=== PATIENT | female | born 1990 | race Caucasian/White ===

== ENCOUNTER 2018-12-23 10:49 | Emergency (ER) | payer OTHER ==
[~2018-12-23] VITALS: Ht 160 cm; Wt 74.6 kg
[2018-12-23 11:01] VITALS: BP 119/68
--- NOTE | 2018-12-23 11:11 | NUR ---
C/O FAINTING 25MIN AGO. PT REPORT BEING DIZZY, SWEATY, AND PASSED OUT AFTER DRINKING [employer] COFFEE. PT REPORTS FEELING NAUSEAS. DENIES FEVER. MEDHX:GASTRIC SLEEVE SURGERY, ASTHMA RX:NAUCALA . DENIES V/D; SKIN IS PINK/WARM/DRY; AAOX4 WITH EVEN AND STEADY GAIT; LUNGS CLEAR BL; HR EVEN AND REGULAR; PT DENIES ANY FEVER, CP, SOB, OR COUGH AT THIS TIME; PATIENT STATES PAIN OF 0/10 AT THIS TIME; VSS; PATIENT POSITIONED FOR COMFORT; HOB ELEVATED; BEDRAILS UP X2; BED DOWN. ER MD MADE AWARE OF PT STATUS.
[2018-12-23] MEDS ORDERED: NACL 0.9% 1,000 ML IV SCH (11:21)
[2018-12-23 11:49] LABS: APPEARANCE,URINE SL CLOUDY (CLEAR); BILIRUBIN,URINE NEGATIVE (NEGATIVE); BLOOD, URINE NEGATIVE (NEGATIVE); COLOR,URINE YELLOW (YELLOW); LEUKOCYTE ESTERASE ,URINE NEGATIVE (NEGATIVE); NITRITE, URINE NEGATIVE (NEGATIVE); PH,URINE 6.5 (5.0-9.0); UGLUCOSE NEGATIVE (NEGATIVE)
[2018-12-23 12:00] LABS: ALBUMIN 3.2 g/dL (3.4-5.0); ANION GAP 6.7 (8-16); CARBON DIOXIDE 31.1 mmol/L (21-32); CREATININE 0.7 mg/dL (0.6-1.3); POTASSIUM 3.8 mmol/L (3.5-5.1); TOTAL BILIRUBIN 0.7 mg/dL (0.0-1.0)
[2018-12-23 12:28] LABS: BASOPHILS % (AUTO) 0.3 % (0.0-2.0); EOSINOPHILS # (AUTO) 0.1 K/uL (0-0.4); EOSINOPHILS % (AUTO) 0.6 % (0.0-4.0); HEMATOCRIT 36.6 % (36-48); HEMOGLOBIN 12.1 g/dL (12.0-16.0); LYMPHOCYTES # (AUTO) 1.5 K/uL (2.5-16.5); LYMPHOCYTES % (AUTO) 15.1 % (20.5-51.1); MEAN CORPUSCULAR HEMOGLOBIN 29 pg (27-31); MEAN CORPUSCULAR HGB CONC 33 g/dL (33-37); MEAN CORPUSCULAR VOLUME 87.6 fL (80-94); MONOCYTES # (AUTO) 0.6 K/uL (0.8-1.0); MONOCYTES % (AUTO) 5.8 % (1.7-9.3); NEUTROPHILS # (AUTO) 7.8 K/uL (1.8-7.7); NEUTROPHILS % (AUTO) 78.2 % (42.2-75.2); PLATELET COUNT (AUTO) 255 K/uL (140-450); RED BLOOD CELL COUNT(AUTO) 4.18 MIL/uL (4.20-5.40); RED CELL DISTRIBUTION WIDTH 14.7 % (11.6-13.7); WHITE BLOOD COUNT (AUTO) 9.9 K/uL (4.8-10.8)
[2018-12-23 14:25] VITALS: BP 114/62
--- NOTE | 2018-12-23 14:25 | NUR ---
Patient discharged with v/s stable. Written and verbal after care instructions given and explained. Patient alert, oriented and verbalized understanding of instructions. Ambulatory with steady gait. All questions addressed prior to discharge. ID band removed. Patient advised to follow up with PMD. Rx NO given. Patient educated on indication of medication including possible reaction and side effects. Opportunity to ask questions provided and answered.
== END 2018-12-23 14:25 | disposition home or self-care (01) ==
LOC: MED 10:49
DX: R55 Syncope and collapse (principal); R10.9 Unspecified abdominal pain; J45.909 Unspecified asthma, uncomplicated; Z88.1 Allergy status to other antibiotic agents
CPT/HCPCS: 36415; 74018; 80053; 81002; 81003; 81025; 82948; 84703; 85025; 93005; 96360; 96361; 99284; J7030; Q0092

== ENCOUNTER 2018-12-25 18:05 | Inpatient (IN) | payer OTHER ==
[~2018-12-25] VITALS: Ht 157.5 cm; Wt 73.9 kg
[2018-12-25] MEDS: DEXT 5% /NACL 0.9% 1,000 ML IV SCH
[2018-12-25 00:55] VITALS: BP 128/82
[2018-12-25 18:15] VITALS: BP 133/87
[2018-12-25 19:21] LABS: APPEARANCE,URINE SL CLOUDY (CLEAR); BILIRUBIN,URINE 2+ (NEGATIVE); BLOOD, URINE 1+ (NEGATIVE); COLOR,URINE DARK YELLOW (YELLOW); LEUKOCYTE ESTERASE ,URINE NEGATIVE (NEGATIVE); NITRITE, URINE NEGATIVE (NEGATIVE); UGLUCOSE NEGATIVE (NEGATIVE)
[2018-12-25 19:29] LABS: CALCIUM OXALATE CRYSTALS,UR >100 /HPF (None Seen); RBC,URINE 0-5 /HPF (0-5); WBC,URINE 0-5 /HPF (0-5)
[2018-12-25 19:38] LABS: BASOPHILS % (AUTO) 0.2 % (0.0-2.0); EOSINOPHILS % (AUTO) 0.4 % (0.0-4.0); HEMATOCRIT 39.5 % (36-48); LYMPHOCYTES # (AUTO) 1.7 K/uL (2.5-16.5); LYMPHOCYTES % (AUTO) 16.6 % (20.5-51.1); MEAN CORPUSCULAR HEMOGLOBIN 29 pg (27-31); MEAN CORPUSCULAR HGB CONC 33 g/dL (33-37); MEAN CORPUSCULAR VOLUME 87.9 fL (80-94); MONOCYTES # (AUTO) 0.6 K/uL (0.8-1.0); MONOCYTES % (AUTO) 6.2 % (1.7-9.3); NEUTROPHILS # (AUTO) 7.8 K/uL (1.8-7.7); NEUTROPHILS % (AUTO) 76.6 % (42.2-75.2); PLATELET COUNT (AUTO) 304 K/uL (140-450); RED CELL DISTRIBUTION WIDTH 14.9 % (11.6-13.7); WHITE BLOOD COUNT (AUTO) 10.2 K/uL (4.8-10.8)
[2018-12-25 19:52] LABS: CARBON DIOXIDE 28.4 mmol/L (21-32); CREATININE 0.6 mg/dL (0.6-1.3); POTASSIUM 4.4 mmol/L (3.5-5.1)
[2018-12-25 19:58] LABS: ALBUMIN 3.7 g/dL (3.4-5.0); TOTAL BILIRUBIN 2.9 mg/dL (0.0-1.0)
--- NOTE | 2018-12-25 20:34 | NUR ---
28 Y/O F PRESENTED TO ED WITH C/O R UNDER BREAST PAIN X 2DAYS. 10/10 PAIN, SHARP AND ACHING, RADIATES TO MID BACK. PAIN IS INTERMINTENT. UNDER BREAST TENDER TO TOUCH. C/O N/V 4X TODAY. PER PT TOOK IBUPROFEN WITH NO RELIEF. FAMILY AT BEDSIDE. WILL CONTINE TO MONITOR.
[2018-12-25] MEDS ORDERED: MORPHINE SULFATE 4 MG/ML SYR IVP ONE (20:35)
[2018-12-25] MEDS ORDERED: NACL 0.9% 1,000 ML IV ONE (20:35)
[2018-12-25] MEDS ORDERED: ONDANSETRON 4 MG/2 ML VIAL IVP ONE (20:35)
--- NOTE | 2018-12-25 21:45 | NUR ---
PT AWAKE. VSS. FAMILY AT BEDSIDE. MIRNA CONTINUE TO MONITOR.
--- NOTE | 2018-12-25 23:50 | NUR ---
Patient will be admitted to care of DR. DAVIS. Admited to [facility]. Will go to room 105A. Belongings list completed. Report to BASIM DIEZ.
--- NOTE | 2018-12-25 23:55 | NUR ---
PT RECEIVED FROM ED NURSE AT BEDSIDE. PT IN STABLE CONDITION. AAOX4. INTRODUCED SELF TO PT. BOARD UPDATED. PT HAS COMPLAINTS OF A HEADACHE. WILL MEDICATE. NO SOB. AFEBRILE. IV SITE L AC 20G RUNNING D5NS@100ML/HR PATENT AND INTACT. SKIN WARM, DRY, AND INTACT WITH NO OPEN WOUNDS. BED LOCKED IN LOW POSITION. CALL CARDOZA WITHIN REACH. SAFETY PRECAUTIONS IN PLACE. ALL NEEDS MET AT THIS TIME.
[2018-12-26] VITALS: BP 128/82
[2018-12-26] MEDS ORDERED: metroNIDAZOLE 500 MG/NS PREMIX 100 ML IV SCH
--- NOTE | 2018-12-26 00:16 | NUR ---
FRANCISCO HUNG AND RUNNING. PT TOLERATING WELL. Addendum: 12/26/18 at 0058 by Sree Jones RN TYL [phone] GIVEN PO FOR HEADACHE.
[2018-12-26] MEDS: ACETAMINOPHEN 325 MG TAB PO PRN ×2 (00:18→17:47)
[2018-12-26] MEDS ORDERED: TRAZ-343 PO (00:22)
--- NOTE | 2018-12-26 00:35 | NUR ---
MD CALLED DUE TO PT WANTING TRAZODONE FOR SLEEP.
[2018-12-26] MEDS: traZODone 50 MG TAB PO PRN ×2 (00:43→20:23)
--- NOTE | 2018-12-26 00:43 | NUR ---
TRAZODONE GIVEN FOR SLEEP. PT TOLERATED WELL.
[2018-12-26] MEDS ORDERED: LEVOFLOXACIN 750 MG/D5W PREMIX 150 ML IV SCH (01:00)
--- NOTE | 2018-12-26 01:38 | NUR ---
MARLON RAND AND RUNNING. PT TOLERATED WELL.
--- NOTE | 2018-12-26 03:15 | NUR ---
PT SLEEPING COMFORTABLY. NO S/S OF DISTRESS NOTED. WILL CONTINUE TO MONITOR.
--- NOTE | 2018-12-26 05:00 | NUR ---
PT SLEEPING COMFORTABLY IN BED. NO S/S OF DISTRESS NOTED. BREATHING EVEN, UNLABORED, AND WNL. WILL CONTINUE TO MONITOR.
[2018-12-26] MEDS: MORPHINE SULFATE 4 MG/ML SYR IVP PRN ×4 (06:44→20:23)
--- NOTE | 2018-12-26 06:44 | NUR ---
MORPHINE GIVEN FOR 9/10 COLIC PAIN. PT TOLERATED WELL.
[2018-12-26 07:00] LABS: BASOPHILS % (AUTO) 0.3 % (0.0-2.0); EOSINOPHILS # (AUTO) 0.1 K/uL (0-0.4); EOSINOPHILS % (AUTO) 1.4 % (0.0-4.0); HEMATOCRIT 36.4 % (36-48); HEMOGLOBIN 12.1 g/dL (12.0-16.0); LYMPHOCYTES # (AUTO) 2.1 K/uL (2.5-16.5); MEAN CORPUSCULAR HEMOGLOBIN 29 pg (27-31); MEAN CORPUSCULAR HGB CONC 33 g/dL (33-37); MEAN CORPUSCULAR VOLUME 87.9 fL (80-94); MONOCYTES # (AUTO) 0.6 K/uL (0.8-1.0); MONOCYTES % (AUTO) 9.5 % (1.7-9.3); NEUTROPHILS # (AUTO) 3.8 K/uL (1.8-7.7); NEUTROPHILS % (AUTO) 56.8 % (42.2-75.2); PLATELET COUNT (AUTO) 257 K/uL (140-450); RED BLOOD CELL COUNT(AUTO) 4.14 MIL/uL (4.20-5.40); RED CELL DISTRIBUTION WIDTH 14.9 % (11.6-13.7); WHITE BLOOD COUNT (AUTO) 6.7 K/uL (4.8-10.8)
--- NOTE | 2018-12-26 07:05 | NUR ---
REPORT GIVEN TO AM NURSE AT BEDSIDE. PT IN STABLE CONDITION.
[2018-12-26 07:13] LABS: ANION GAP 12.4 (8-16); CARBON DIOXIDE 27.2 mmol/L (21-32); CREATININE 0.5 mg/dL (0.6-1.3); POTASSIUM 3.6 mmol/L (3.5-5.1)
[2018-12-26 07:18] LABS: PROTHROMBIN TIME 9.7 secs (10.8-13.4)
[2018-12-26 07:19] LABS: ALBUMIN 2.9 g/dL (3.4-5.0); TOTAL BILIRUBIN 2.4 mg/dL (0.0-1.0)
--- NOTE | 2018-12-26 07:20 | NUR ---
REPORT RECEIVED FROM DIAGRAMMER NURSE. PT IS AWAKE AND ALERT, NO S/S OF ACUTE DISTRESS OR SOB. NO C/O PAIN. PT IS ON ROOM AIR, SKIN IS INTACT. IV SITE NOTED ON THE LAC 20 G, INFUSING D5NS 100 ML/HR. PT IS AMBULATORY AND NOT A FALL RISK, CALL LIGHT IS WITHIN REACH. WILL CONTINUE TO MONITOR.
[2018-12-26 07:32] LABS: MAGNESIUM 1.7 mg/dL (1.8-2.4)
[2018-12-26 08:00] VITALS: BP 124/71
--- NOTE | 2018-12-26 08:35 | NUR ---
PATIENT HAS BEEN SCREENED AND CATEGORIZED MODERATE NUTRITION RISK. PATIENT WILL BE SEEN WITHIN 3-5 DAYS OF ADMISSION. 12/28/18[address]
--- NOTE | 2018-12-26 08:54 | NUR ---
PT COMPLETED THE MRI QUESTIONNAIRE FOR THE UPCOMING MRCP. AWAITING SS TO ARRANGE APPOINTMENT AND TRANSPORT.PT IS MAINTAINED NPO.
[2018-12-26] MEDS: metroNIDAZOLE 500 MG/NS PREMIX 100 ML IV SCH ×3 (09:48→23:18)
[2018-12-26] MEDS: DEXT 5% /NACL 0.9% 1,000 ML IV SCH ×2 (09:48→19:59)
--- NOTE | 2018-12-26 10:25 | NUR ---
PT SEEN BY DR LANGFORD
--- NOTE | 2018-12-26 11:13 | NUR ---
PT SEEN BY DR ANTOINE
[2018-12-26] MEDS: ONDANSETRON 4 MG/2 ML VIAL IVP PRN ×2 (11:53→17:43)
--- NOTE | 2018-12-26 12:08 | NUR ---
CONSENT OBTAINED FROM PT FOR CHOLECYSTECTOMY PROCEDURE TOMORROW.
[2018-12-26] MEDS: SENNA 8.6 MG TAB PO SCH ×2 (13:37→15:51)
--- NOTE | 2018-12-26 15:03 | NUR ---
CALLED OFFICE OF DR EDVIN NICHOLAS SPOKE WITH JASMINA [phone] FOLLOW- UP APPOINTMENT MADE ON 01/04/19 830AM, [address] [facility] [place], [id number]. COPY OF SCHEDULE APPOINTMENT PLACED TO CHART, PRIMARY NURSE MICHEAL MADE AWARE. VERBALIZED UNDERSTANDING TO INSTRUCT PATIENT.
[2018-12-26 16:00] VITALS: BP 115/78
--- NOTE | 2018-12-26 19:15 | NUR ---
PT ENDORSED TO PHYSICAL FITNESS TEACHER NURSE IN STABLE CONDITION.
--- NOTE | 2018-12-26 19:16 | NUR ---
RECEIVED REPORT FROM DAY SHIFT NURSE MICHEAL-RN AT BEDSIDE. PT RESTING IN BED. AOX4, ON ROOM AIR WITH LEFT AC #20G RUNNING D5-NS0.9% RUNNING AT 100ML/HR. DISCUSSED PLAN OF CARE AND PT VERBALIZED UNDERSTANDING. NO S/S OF RESPIRATORY DISTRESS OR DISCOMFORT NOTED AT THIS TIME. BED IN LOWEST POSITION, BED BREAKS ON, BOTH SIDE RAILS UP. STRICT I&O IN PLACE. BEDSIDE TABLE AND CALL LIGHT ARE WITHIN REACH. WILL CONTINUE TO MONITOR.
[2018-12-26 20:00] VITALS: BP 110/58
--- NOTE | 2018-12-26 20:00 | NUR ---
VITAL SIGNS TAKEN AND TOLERATED WELL. PT C/O PAIN 06/08- WILL ADMINISTER PAIN MEDICATION. PT ALSO C/O INSOMNIA REQUESTING TRAZODONE- WILL ADMINISTER. NO S/S OF RESPIRATORY DISTRESS OR DISCOMFORT NOTED AT THIS TIME. WILL CONTINUE TO MONITOR.
--- NOTE | 2018-12-26 20:23 | NUR ---
TRAZODONE AND MORPHINE GIVEN AND TOLERATED WELL. NO S/S OF RESPIRATORY DISTRESS OR DISCOMFORT NOTED AT THIS TIME. WILL CONTINUE TO MONITOR.
[2018-12-26] MEDS: LEVOFLOXACIN 750 MG/D5W PREMIX 150 ML IV SCH (22:07)
--- NOTE | 2018-12-26 22:07 | NUR ---
SCHEDULED MEDICATION LEVAQUIN GIVEN AND TOLERATED WELL. NO S/S OF RESPIRATORY DISTRESS OR DISCOMFORT NOTED AT THIS TIME. WILL CONTINUE TO MONITOR.
[2018-12-26] MEDS ORDERED: PNEUMOCOCCAL VACCINE 23 MCG/0.5 ML VIAL IMVAC ONE (22:45)
--- NOTE | 2018-12-26 23:18 | NUR ---
SCHEDULED MEDICATION FLAGYL GIVEN AND TOLERATED WELL. NO S/S OF RESPIRATORY DISTRESS OR DISCOMFORT NOTED AT THIS TIME. WILL CONTINUE TO MONITOR.
[2018-12-27] VITALS: BP 108/77
--- NOTE | 2018-12-27 | NUR ---
VITAL SIGNS TAKEN AND TOLERATED WELL. NO S/S OF RESPIRATORY DISTRESS OR DISCOMFORT NOTED AT THIS TIME. WILL CONTINUE TO MONITOR.
--- NOTE | 2018-12-27 02:00 | NUR ---
PT SLEEPING AT THIS TIME. NO S/S OF RESPIRATORY DISTRESS OR DISCOMFORT NOTED AT THIS TIME. WILL CONTINUE TO MONITOR.
--- NOTE | 2018-12-27 04:00 | NUR ---
PT CONTINUES TO SLEEP IN BED. NO S/S OF RESPIRATORY DISTRESS OR DISCOMFORT NOTED AT THIS TIME. WILL CONTINUE TO MONITOR.
[2018-12-27] MEDS: DEXT 5% /NACL 0.9% 1,000 ML IV SCH ×2 (05:00→15:00)
--- NOTE | 2018-12-27 06:00 | NUR ---
PT RESTING IN BED. NO S/S OF RESPIRATORY DISTRESS OR DISCOMFORT NOTED AT THIS TIME. WILL CONTINUE TO MONITOR.
--- NOTE | 2018-12-27 07:09 | NUR ---
ENDORSED PT CARE TO DAY SHIFT NURSE AMY FOR CONTINUITY OF CARE.
--- NOTE | 2018-12-27 07:15 | NUR ---
RECEIVED PT REPORT FROM SIDING INSTALLER NURSE AT BEDSIDE. PT IS ALERT AND AWAKE, NO S/S OF ACUTE DISTRESS OR SOB. PT C/O ABD PAIN, WILL MEDICATE. IV SITE ON THE LAC 20 G INFUSING D5NS 100 ML/HR. PT IS NPO FOR UPCOMING CHOLECYSTECTOMY PROCEDURE TODAY. CALL LIGHT IS WITHIN REACH. WILL CONTINUE TO MONITOR.
[2018-12-27 08:00] VITALS: BP 121/82
[2018-12-27] MEDS: SENNA 8.6 MG TAB PO SCH ×3 (08:55→16:45)
[2018-12-27] MEDS: metroNIDAZOLE 500 MG/NS PREMIX 100 ML IV SCH ×3 (08:55→23:48)
[2018-12-27] MEDS: MORPHINE SULFATE 4 MG/ML SYR IVP PRN ×3 (08:55→20:38)
[2018-12-27 08:59] LABS: BASOPHILS % (AUTO) 0.5 % (0.0-2.0); EOSINOPHILS # (AUTO) 0.1 K/uL (0-0.4); EOSINOPHILS % (AUTO) 1.7 % (0.0-4.0); HEMATOCRIT 36.1 % (36-48); HEMOGLOBIN 12.3 g/dL (12.0-16.0); LYMPHOCYTES # (AUTO) 1.7 K/uL (2.5-16.5); LYMPHOCYTES % (AUTO) 37.4 % (20.5-51.1); MEAN CORPUSCULAR HEMOGLOBIN 30 pg (27-31); MEAN CORPUSCULAR HGB CONC 34 g/dL (33-37); MEAN CORPUSCULAR VOLUME 87.3 fL (80-94); MONOCYTES # (AUTO) 0.5 K/uL (0.8-1.0); MONOCYTES % (AUTO) 10.7 % (1.7-9.3); NEUTROPHILS # (AUTO) 2.3 K/uL (1.8-7.7); NEUTROPHILS % (AUTO) 49.7 % (42.2-75.2); PLATELET COUNT (AUTO) 257 K/uL (140-450); RED BLOOD CELL COUNT(AUTO) 4.14 MIL/uL (4.20-5.40); RED CELL DISTRIBUTION WIDTH 14.9 % (11.6-13.7); WHITE BLOOD COUNT (AUTO) 4.6 K/uL (4.8-10.8)
[2018-12-27 09:02] LABS: ALBUMIN 2.9 g/dL (3.4-5.0); ANION GAP 9.7 (8-16); CARBON DIOXIDE 30.5 mmol/L (21-32); CREATININE 0.7 mg/dL (0.6-1.3); MAGNESIUM 1.7 mg/dL (1.8-2.4); PHOSPHORUS 2.4 mg/dL (2.5-4.9); POTASSIUM 4.2 mmol/L (3.5-5.1); TOTAL BILIRUBIN 0.9 mg/dL (0.0-1.0)
--- NOTE | 2018-12-27 11:05 | NUR ---
PT OFF THE UNIT FOR SURGICAL PROCEDURE AT THIS TIME.
[2018-12-27] MEDS: BUPIVACAINE-MPF/EPI 0.25% 30 ML VIAL INJ ONE ×2 (11:20→12:45)
[2018-12-27] MEDS ORDERED: ROCURONIUM 50 MG/5 ML VIAL IV ONE (11:52)
[2018-12-27] MEDS ORDERED: DESFLURANE 240 ML BTL INH ONE (11:52)
[2018-12-27] MEDS ORDERED: GLYCOPYRROLATE 0.2 MG/ML VIAL ONE (11:52)
[2018-12-27] MEDS ORDERED: ONDANSETRON 4 MG/2 ML VIAL ONE (11:52)
[2018-12-27] MEDS ORDERED: SUCCINYLCHOLINE CHLORIDE 200 MG/10 ML VIAL IVP ONE (11:52)
[2018-12-27] MEDS ORDERED: PHENYLEPHRINE 10 MG/ML VIAL ONE (11:52)
[2018-12-27] MEDS ORDERED: PROPOFOL 200 MG/20 ML VIAL IV ONE (11:52)
[2018-12-27] MEDS ORDERED: KETOROLAC 30 MG/ML VIAL ONE (11:52)
[2018-12-27] MEDS ORDERED: DEXAMETHASONE 4 MG/ML VIAL ONE (11:52)
[2018-12-27] MEDS ORDERED: HYDROmorphone PFS 2 MG/ML SYR ONE ×2 (12:06→13:20)
[2018-12-27] MEDS ORDERED: fentaNYL 0.05 MG/ML VIAL ONE (12:06)
[2018-12-27] MEDS ORDERED: ONDANSETRON 4 MG/2 ML VIAL IVP PRN (12:15)
--- NOTE | 2018-12-27 13:10 | NUR ---
PT BACK FROM THE OR. PT IS AWAKE BUT STILL DROWSY. VS STABLE: BP 109/61, HR 59, TEMP 97.8, O2 94%, RR 14. CALL LIGHT GIVEN WITHIN REACH. WILL CONTINUE TO MONITOR. PT'S SO IS AT BEDSIDE.
[2018-12-27] MEDS: HYDROmorphone 1 MG/ML AMP IVP PRN ×2 (13:13→13:23)
[2018-12-27] MEDS: ONDANSETRON 4 MG/2 ML VIAL IVP PRN (14:08)
[2018-12-27] MEDS ORDERED: PNEUMOCOCCAL VACCINE 23 MCG/0.5 ML VIAL IMVAC SCH (14:55)
[2018-12-27 16:00] VITALS: BP 116/67
--- NOTE | 2018-12-27 19:15 | NUR ---
PT ENDORSED TO TRANSIT OPERATOR IN STABLE CONDITION.
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
[2018-12-27 20:00] VITALS: BP 113/70
--- NOTE | 2018-12-27 20:00 | NUR ---
VITAL SIGNS TAKEN AND TOLERATED WELL. PT C/O PAIN 04/08- WILL MEDICATE. NO S/S OF RESPIRATORY DISTRESS OR DISCOMFORT NOTED AT THIS TIME. WILL CONTINUE TO MONITOR.
[2018-12-27] MEDS: traZODone 50 MG TAB PO PRN (20:37)
--- NOTE | 2018-12-27 20:38 | NUR ---
MORPHINE GIVEN FOR PAIN- PT TOLERATED WELL. PT REQUESTED TRAZODONE FOR SLEEP- GIVEN AND TOLERATED WELL. NO S/S OF RESPIRATORY DISTRESS OR DISCOMFORT NOTED AT THIS TIME. WILL CONTINUE TO MONITOR.
[2018-12-27] MEDS: LEVOFLOXACIN 750 MG/D5W PREMIX 150 ML IV SCH (22:29)
--- NOTE | 2018-12-27 22:29 | NUR ---
SCHEDULED MEDICATION LEVAQUIN GIVEN AND TOLERATED WELL. NO S/S OF RESPIRATORY DISTRESS OR DISCOMFORT NOTED AT THIS TIME. WILL CONTINUE TO MONITOR.
--- NOTE | 2018-12-27 23:48 | NUR ---
SCHEDULED MEDICATION FLAGYL GIVEN AND TOLERATED WELL. NO S/S OF RESPIRATORY DISTRESS OR DISCOMFORT NOTED AT THIS TIME. WILL CONTINUE TO MONITOR.
[2018-12-28] VITALS: BP 94/59
--- NOTE | 2018-12-28 | NUR ---
VITALS TAKEN. TOLERATED WELL. NO COMPLAINTS AT THIS TIME. BED IN LOWEST POSITION. CALL LIGHT WITHIN REACH. WILL CONTINUE TO MONITOR.
[2018-12-28] MEDS: DEXT 5% /NACL 0.9% 1,000 ML IV SCH (01:46)
--- NOTE | 2018-12-28 02:00 | NUR ---
PT SLEEPING IN BED. NO S/S OF RESPIRATORY DISTRESS OR DISCOMFORT NOTED AT THIS TIME. WILL CONTINUE TO MONITOR.
[2018-12-28] MEDS: MORPHINE SULFATE 4 MG/ML SYR IVP PRN ×2 (03:06→08:17)
[2018-12-28] MEDS: ONDANSETRON 4 MG/2 ML VIAL IVP PRN ×4 (03:06→20:17)
--- NOTE | 2018-12-28 03:06 | NUR ---
PATIENT COMPLAINED OF HEAD PAIN 10/10 AND FEELING NAUSEATED. PRN PAIN AND ANTIEMETIC MEDS WERE GIVEN PER ORDER. WILL CONTINUE TO MONITOR
--- NOTE | 2018-12-28 05:06 | NUR ---
PT SLEEPING COMFORTABLY IN BED.EASILY AROUSABLE. NO SIGNS OF RESP DISTRESS. BED IN LOW POSITION. CALL LIGHT WITHIN REACH. WILL CONTINUE TO MONITOR.
--- NOTE | 2018-12-28 07:20 | NUR ---
ENDORSED PT TO DAYSHIFT RN. PT IN STABLE CONDITION. BED IN LOWEST POSITION. CALL LIGHT WITHIN REACH.
--- NOTE | 2018-12-28 07:21 | NUR ---
RECEIVED REPORT FROM LETTER OF CREDIT DOCUMENT EXAMINER NURSE. PATIENT IS SLEEPING COMFORTABLY,EASILY AROUSABLE. RESPIRATIONS ARE EVEN AND UNLABORED. DENIES PAIN AT THIS TIME. IV INTACT AND PATENT WITH IVF INFUSING. PLAN OF CARE WAS REVIEWED WITH PATIENT. PATIENT VERBALIZED UNDERSTANDING. SAFETY MEASURES IN PLACE, BED IN LOWEST POSITION, CALL LIGHT WITHIN REACH. WILL CONTINUE TO MONITOR.
--- NOTE | 2018-12-28 07:22 | NUR ---
MOM PRESENT AT BEDSIDE.
[2018-12-28 08:00] VITALS: BP 114/67
[2018-12-28] MEDS: metroNIDAZOLE 500 MG/NS PREMIX 100 ML IV SCH ×2 (08:16→17:45)
[2018-12-28 08:17] LABS: BASOPHILS % (AUTO) 0.1 % (0.0-2.0); EOSINOPHILS % (AUTO) 0.4 % (0.0-4.0); HEMATOCRIT 29.6 % (36-48); LYMPHOCYTES # (AUTO) 1.5 K/uL (2.5-16.5); LYMPHOCYTES % (AUTO) 16.8 % (20.5-51.1); MEAN CORPUSCULAR HEMOGLOBIN 29 pg (27-31); MEAN CORPUSCULAR HGB CONC 34 g/dL (33-37); MEAN CORPUSCULAR VOLUME 87.2 fL (80-94); MONOCYTES # (AUTO) 0.7 K/uL (0.8-1.0); MONOCYTES % (AUTO) 8.1 % (1.7-9.3); NEUTROPHILS # (AUTO) 6.8 K/uL (1.8-7.7); NEUTROPHILS % (AUTO) 74.6 % (42.2-75.2); PLATELET COUNT (AUTO) 243 K/uL (140-450); RED CELL DISTRIBUTION WIDTH 14.5 % (11.6-13.7); WHITE BLOOD COUNT (AUTO) 9.2 K/uL (4.8-10.8)
[2018-12-28] MEDS: SENNA 8.6 MG TAB PO SCH ×3 (08:18→17:44)
--- NOTE | 2018-12-28 08:31 | NUR ---
ADMINISTERED SCHEDULED MEDS AND PAIN MEDICATION FOR PAIN AT SURGICAL SITE. WILL CONTINUE TO MONITOR.
[2018-12-28 08:42] LABS: ALBUMIN 2.7 g/dL (3.4-5.0); ANION GAP 8.7 (8-16); CARBON DIOXIDE 28.6 mmol/L (21-32); CREATININE 0.7 mg/dL (0.6-1.3); POTASSIUM 3.3 mmol/L (3.5-5.1); TOTAL BILIRUBIN 0.8 mg/dL (0.0-1.0)
[2018-12-28 08:46] LABS: MAGNESIUM 1.5 mg/dL (1.8-2.4); PHOSPHORUS 2.5 mg/dL (2.5-4.9)
[2018-12-28] MEDS: ALBUTEROL 0.083% 2.5 MG/3 ML NEBU INH PRN ×2 (08:48→17:48)
--- NOTE | 2018-12-28 08:48 | NUR ---
AWAKE AND ALERT VERBALLY RESPONSIVE PATIENT C/O NASAL DRYNESS WITH SUPPLEMENTAL OXYGEN USE POST HHN POST HHN THERAPY ADDED HUMIDIFIER
[2018-12-28] MEDS ORDERED: ALBU0.0912 IH (08:52)
[2018-12-28] MEDS: ACETAMINOPHEN 325 MG TAB PO PRN (09:59)
[2018-12-28] MEDS ORDERED: MAG SULF 2000 MG/WATER PREMIX 50 ML IV SCH (10:30)
--- NOTE | 2018-12-28 11:00 | NUR ---
K=3.3, NOTIFIED DR. WILKES ON UNIT. PER DR. WILKES, GIVE PATIENT A BANANNA TO EAT. WILL GIVE PATIENT A BANNANA. WILL CONTINUE TO MONITOR.
--- NOTE | 2018-12-28 11:30 | NUR ---
PATIENT AMBULATING IN [facility] WITH FAMILY MEMBER. WILL CONTINUE TO MONITOR.
--- NOTE | 2018-12-28 12:53 | NUR ---
PATIENT C/O NAUSEA. ADMINISTERED ZOFRAN PRN. WILL CONTINUE TO MONITOR.
--- NOTE | 2018-12-28 15:11 | NUR ---
PATIENT IS RESTING IN BED. PAIN IS AT A TOLERABLE LEVEL AT THIS TIME. WILL CONTINUE TO MONITOR.
[2018-12-28 16:00] VITALS: BP 109/69
--- NOTE | 2018-12-28 18:20 | NUR ---
PATIENT OLD IV SITE INFILTRATED. IV SITE REMOVED WITH MINIMAL BLOOD AND LUMEN COMPLETELY INTACT. NEW IV LINE STARTED ON RIGHT FOREARM #22 ON FIRST ATTEMPT. PATIENT TOLERATED WELL. WILL CONTINUE TO MONITOR.
[2018-12-28] MEDS: MORPHINE SULFATE 2 MG/ML SYR IVP PRN ×2 (18:56→20:22)
--- NOTE | 2018-12-28 19:13 | NUR ---
GAVE ENDORSEMENT TO WILDLIFE CONSERVATION PROFESSOR FOR CONTINUITY OF CARE. PATIENT IS STABLE.
--- NOTE | 2018-12-28 19:20 | NUR ---
RECEIVED FROM AM RN IN BED SITTING UP AND EATING REGULAR FOOD. MALE VISITOR AT BEDSIDE. NO COMPLAINTS DONE. DENIES PAIN AT THIS TIME. RE-ORIENTED TO CALL LIGHT USE AND CARE PLANS FOR THE NIGHT, ABLE TO VERBALIZE NEEDS WELL.
--- NOTE | 2018-12-28 20:01 | NUR ---
PAGED MD SALVADOR RT PT. C/O STILL IN PAIN. WANTS TO HAVE ANOTHER XRAY TO BACK. MD CHAUDHRY PULLING UNIT FLOORHAND STATED "NO , SHE JUST HAD LAP CHOLECYSTECTOMY YESTERDAY AND OF COURSE SHE WILL STILL BE IN PAIN" EXPLAINED BACK TO PT. UNDERSTOOD WELL BY PT. WITH NEW ORDER TO GIVE 2 MG. IVP NOW AND TO GIVE THE 4 MG. IVP AFTER ORDERED PRN FOR PAIN.
[2018-12-28] MEDS ORDERED: MORPHINE SULFATE 2 MG/ML SYR IVP ONE (20:05)
[2018-12-28 20:15] VITALS: BP 111/68
--- NOTE | 2018-12-28 20:15 | NUR ---
RECEIVED PATIENT ON ROOM AIR, PULSE OX SAT 97%. FAMILY AT BEDSIDE. PATIENT DENIES ANY SHORTNESS OF BREATH AT THIS TIME. NO RESPIRATORY DISTRESS NOTED AT THIS TIME. HHN NOT INDICATED AT THIS TIME. WILL CONTINUE TO MONITOR.
[2018-12-28] MEDS: traZODone 50 MG TAB PO PRN (20:30)
--- NOTE | 2018-12-28 22:53 | NUR ---
SLEEPING AT THIS TIME. MEDICATED WITH MORPHINE 2 MG IVP EARLIER ORDERED BY . ISIDORO REDDY C/O BACK PAIN. CALL LIGHT WITH IN REACH.
[2018-12-28] MEDS: LEVOFLOXACIN 750 MG/D5W PREMIX 150 ML IV SCH (23:27)
--- NOTE | 2018-12-29 00:10 | NUR ---
SLEEPING AT THIS TIME. WAKES UP WHEN TOUCHED. IV ABT INFUSING AT THIS TIME. EXPLAINED USE OF IV ABT.
[2018-12-29] MEDS: metroNIDAZOLE 500 MG/NS PREMIX 100 ML IV SCH ×2 (01:00→08:58)
[2018-12-29 01:20] VITALS: BP 101/71
--- NOTE | 2018-12-29 01:20 | NUR ---
PT. ASSISTED TO RESTROOM TO URINATE. PT. ABLE TO AMBULATE BY HERSELF. ROM X4. I TURNED TO HANG IV ABT PT. WENT OUT FROM THE RESTROOM AND SLIPPED ON HER LEFT KNEE . A/O X 4. ASSISTED BY NURSES TO SIT UP IN CHAIR AND RELAX AND EVENTUALLY TO BED. CALLED MD CHAUDHRY AND INFORMED OF FALL IMMEDIATELY. WITH NEW ORDERS TO XRAY TIBIA/ FIBULA LEFT SIDE AND LEFT KNEE. PT. ABLE TO VERBALIZE WELL. ABDOMINAL DRESSING INTACT AND NO BLEEDING NOTED. GARAGEMAN INFORMED.
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
[2018-12-29] MEDS: ALBUTEROL 0.083% 2.5 MG/3 ML NEBU INH PRN ×2 (02:37→06:34)
--- NOTE | 2018-12-29 02:45 | NUR ---
PATIENT CALLED FOR PRN BREATHING TREATMENT. PRN BREATHING TX ADMINISTERED. TOLERATED TX WELL, NO ADVERSE SIDE EFFECTS. NO RESPIRATORY DISTRESS NOTED AT THIS TIME. WILL CONTINUE TO MONITOR.
--- NOTE | 2018-12-29 03:56 | NUR ---
ASSISTED TO RESTROOM. STOOD BY HER SIDE RT RECENT FALL INCIDENT. "I AM OK NOW " ASSISTED BACK TO BED AND BED ALARM ON WITH CALL LIGHT AT BEDSIDE. PT. WEARING YELLOW SOCKS. ROM X 4. CLEAR SPEECH.
--- NOTE | 2018-12-29 05:04 | NUR ---
SLEEPING. BED ALARM ON. CALL LIGHT WITH IN REACH.
--- NOTE | 2018-12-29 07:26 | NUR ---
ENDORSED TO NEXT RN FOR CONTINUITY OF CARE. AWAKE AND ALERT. GOOD AFFECT. NO PAIN COMPLAINTS AT THIS TIME.
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
[2018-12-29 08:00] VITALS: BP 124/81
[2018-12-29 08:12] LABS: BASOPHILS % (AUTO) 0.2 % (0.0-2.0); EOSINOPHILS % (AUTO) 0.2 % (0.0-4.0); HEMATOCRIT 30.3 % (36-48); HEMOGLOBIN 10.2 g/dL (12.0-16.0); LYMPHOCYTES # (AUTO) 1.5 K/uL (2.5-16.5); LYMPHOCYTES % (AUTO) 17.5 % (20.5-51.1); MEAN CORPUSCULAR HEMOGLOBIN 30 pg (27-31); MEAN CORPUSCULAR HGB CONC 34 g/dL (33-37); MEAN CORPUSCULAR VOLUME 87.2 fL (80-94); MONOCYTES # (AUTO) 0.6 K/uL (0.8-1.0); MONOCYTES % (AUTO) 6.9 % (1.7-9.3); NEUTROPHILS # (AUTO) 6.4 K/uL (1.8-7.7); NEUTROPHILS % (AUTO) 75.2 % (42.2-75.2); PLATELET COUNT (AUTO) 231 K/uL (140-450); RED BLOOD CELL COUNT(AUTO) 3.48 MIL/uL (4.20-5.40); RED CELL DISTRIBUTION WIDTH 14.8 % (11.6-13.7); WHITE BLOOD COUNT (AUTO) 8.5 K/uL (4.8-10.8)
[2018-12-29 08:28] LABS: ANION GAP 10.4 (8-16); CREATININE 0.7 mg/dL (0.6-1.3); POTASSIUM 3.4 mmol/L (3.5-5.1); TOTAL BILIRUBIN 0.7 mg/dL (0.0-1.0)
[2018-12-29 08:30] LABS: MAGNESIUM 1.9 mg/dL (1.8-2.4)
[2018-12-29] MEDS: MORPHINE SULFATE 2 MG/ML SYR IVP PRN (08:57)
[2018-12-29] MEDS: SENNA 8.6 MG TAB PO SCH (08:58)
--- NOTE | 2018-12-29 09:21 | NUR ---
PATIENT SITTING IN BED. NO DISTRESS NOTED. COMPLAINS OF BACK PAIN. MORPHINE GIVEN PER MD ORDERS. OTHER SCHEDULED MEDICATIONS DUE GIVEN. WILL CONTINUE TO MONITOR.
--- NOTE | 2018-12-29 10:23 | NUR ---
DISCHARGE INSTRUCTIONS PROVIDED TO PATIENT IN PREFERRED LANGUAGE OF TRINIDADIAN. INSTRUCTIONS ON FOLLOW-UP VISIT WITH PCP AND SURGEON, DIET REGIMEN, NO HEAVY LIFTING OVER 10 LBS FOR 2 WEEKS, PAIN MANAGEMENT, AND NEW/CHANGED MEDICATIONS PROVIDED TO PATIENT/FAMILY AT BEDSIDE. ANSWERED ALL OF PATIENT/FAMILY'S QUESTIONS REGARDING DISCHARGE. PATIENT TO GET DRESSED AND THEN READY TO GO HOME. WILL CONTINUE TO MONITOR.
--- NOTE | 2018-12-29 10:50 | NUR ---
PATIENT ALL DRESSED UP. ALL BELONGINGS WITH PATIENT. IV SITE REMOVED WITH MINIMAL BLOOD AND LUMEN COMPLETELY INTACT. ID BANDS REMOVED. ESCORTED PATIENT DOWN TO LOBBY VIA WHEELCHAIR. WILL CONTINUE TO MONITOR.
== END 2018-12-29 10:50 | disposition home or self-care (01) | DRG 263 ==
LOC: MED 18:05 → MTU 22:57
PROVIDERS: ADMIT Internal Medicine Pulmonary Disease; ATTEND Internal Medicine Pulmonary Disease
PROC: 3E0234Z Introduction of Serum, Toxoid and Vaccine into Muscle, Percutaneous Approach (ICD-10-PCS; 2018-12-26)
PROC: BF131ZZ Fluoroscopy of Gallbladder and Bile Ducts using Low Osmolar Contrast (ICD-10-PCS; 2018-12-27)
PROC: 0FT44ZZ Resection of Gallbladder, Percutaneous Endoscopic Approach (ICD-10-PCS; principal; 2018-12-27 09:00)
DX: K80.70 Calculus of gallbladder and bile duct without cholecystitis without obstruction (principal); F12.90 Cannabis use, unspecified, uncomplicated; K59.00 Constipation, unspecified; M54.9 Dorsalgia, unspecified; J45.909 Unspecified asthma, uncomplicated; Z98.84 Bariatric surgery status; Z23 Encounter for immunization; Z88.1 Allergy status to other antibiotic agents
CPT/HCPCS: 36415; 73562; 73590; 76705; 80053; 81001; 82374; 83690; 83735; 84100; 84703; 85025; 85610; 85730; 86886; 86900; 86901; 87081; 87086; 88304; 90732; 94640; 96361; 96374; 96375; 99285; C1887; J0330; J1100; J1170; J1885; J1956; J2270; J2370; J2405; J2704; J3010; J3475; J3490; J7030; J7042; J7613; Q0092

== ENCOUNTER 2019-01-18 07:20 | Emergency (ER) | payer OTHER ==
[~2019-01-18] VITALS: Ht 160 cm; Wt 72.1 kg
[~2019-01-18 07:20] MED LIST: ALBU0.0912 IH; TRAZ-343 PO
[2019-01-18 07:24] VITALS: BP 113/71
--- NOTE | 2019-01-18 07:36 | NUR ---
PT AMBULATED TO BED 3.
--- NOTE | 2019-01-18 07:37 | NUR ---
MURALI MONTEZ AT THE BEDSIDE EVALUATING PT.
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
[2019-01-18] MEDS ORDERED: NACL 0.9% 1,000 ML IV SCH (07:41)
[2019-01-18] MEDS ORDERED: NACL 0.9% 1,000 ML IV ONE (07:41)
[2019-01-18] MEDS ORDERED: ONDANSETRON 4 MG/2 ML VIAL IVP ONE (07:45)
[2019-01-18] MEDS ORDERED: DIPHENOXYLATE /ATROPINE 2.5 MG TAB PO ONE (07:45)
[2019-01-18 08:04] LABS: BASOPHILS % (AUTO) 0.4 % (0.0-2.0); EOSINOPHILS # (AUTO) 0.1 K/uL (0-0.4); EOSINOPHILS % (AUTO) 0.7 % (0.0-4.0); HEMATOCRIT 39.1 % (36-48); LYMPHOCYTES # (AUTO) 1.6 K/uL (2.5-16.5); LYMPHOCYTES % (AUTO) 20.7 % (20.5-51.1); MEAN CORPUSCULAR HEMOGLOBIN 29 pg (27-31); MEAN CORPUSCULAR HGB CONC 33 g/dL (33-37); MEAN CORPUSCULAR VOLUME 86.7 fL (80-94); MONOCYTES # (AUTO) 0.6 K/uL (0.8-1.0); MONOCYTES % (AUTO) 7.2 % (1.7-9.3); NEUTROPHILS # (AUTO) 5.5 K/uL (1.8-7.7); PLATELET COUNT (AUTO) 313 K/uL (140-450); RED BLOOD CELL COUNT(AUTO) 4.51 MIL/uL (4.20-5.40); RED CELL DISTRIBUTION WIDTH 14.1 % (11.6-13.7); WHITE BLOOD COUNT (AUTO) 7.8 K/uL (4.8-10.8)
[2019-01-18 08:13] LABS: APPEARANCE,URINE CLEAR (CLEAR); BILIRUBIN,URINE NEGATIVE (NEGATIVE); BLOOD, URINE NEGATIVE (NEGATIVE); COLOR,URINE YELLOW (YELLOW); LEUKOCYTE ESTERASE ,URINE NEGATIVE (NEGATIVE); NITRITE, URINE NEGATIVE (NEGATIVE); PH,URINE 6.5 (5.0-9.0); UGLUCOSE NEGATIVE (NEGATIVE)
[2019-01-18 08:16] LABS: ANION GAP 11.5 (8-16); CARBON DIOXIDE 28.7 mmol/L (21-32); CREATININE 0.7 mg/dL (0.6-1.3); POTASSIUM 4.2 mmol/L (3.5-5.1)
--- NOTE | 2019-01-18 08:20 | NUR ---
TAKEN TO THE CT.
[2019-01-18 08:21] LABS: ALBUMIN 3.7 g/dL (3.4-5.0); TOTAL BILIRUBIN 1.2 mg/dL (0.0-1.0)
[2019-01-18 08:35] LABS: RBC,URINE NONE SEEN /HPF (0-5)
--- NOTE | 2019-01-18 08:35 | NUR ---
BACK FROM CT.
--- NOTE | 2019-01-18 09:03 | NUR ---
PT BEING REEVALUATED BY ER AT THIS TIME.
[2019-01-18 09:25] VITALS: BP 111/68
--- NOTE | 2019-01-18 09:35 | NUR ---
Patient discharged with v/s stable. Written and verbal after care instructions given and explained. Patient alert, oriented and verbalized understanding of instructions. Ambulatory with steady gait. All questions addressed prior to discharge. ID band removed. Patient advised to follow up with PMD. Rx of IMODIUM A-D given. Patient educated on indication of medication including possible reaction and side effects. Opportunity to ask questions provided and answered.
== END 2019-01-18 09:35 | disposition home or self-care (01) ==
LOC: MED 07:20
DX: R55 Syncope and collapse (principal); A08.4 Viral intestinal infection, unspecified; E86.0 Dehydration; E86.1 Hypovolemia; I10 Essential (primary) hypertension; J45.909 Unspecified asthma, uncomplicated; Z90.49 Acquired absence of other specified parts of digestive tract; Z88.1 Allergy status to other antibiotic agents; Z79.899 Other long term (current) drug therapy
CPT/HCPCS: 36415; 70450; 73080; 80053; 81001; 81025; 82150; 83690; 84484; 85025; 87086; 93005; 96361; 96374; 99284; J2405; J7030; Q0092

== ENCOUNTER 2019-02-09 09:39 | Emergency (ER) | payer OTHER ==
[~2019-02-09] VITALS: Ht 160 cm; Wt 69.9 kg
[2019-02-09 09:44] VITALS: BP 134/81
--- NOTE | 2019-02-09 09:54 | NUR ---
PATIENT AMBULATED TO BED 9
--- NOTE | 2019-02-09 09:59 | NUR ---
PT TO ED WITH C/O HEADACHE AND DIARRHEA X 2 DAYS. ABD IS SOFT NON TENDER. NO DISTENTION NOTED. BOWEL SOUNDS ACTIVE X 4. PT DENIES N/V. NO LIGHT OR SOUND SENSTIVTY. NO NEURO DEFECITS. PT PLACED INTO BED, PENDING MD MG.
[2019-02-09] MEDS ORDERED: HYDROcodone/APAP 5/325 MG 1 TAB TAB PO ONE (10:10)
--- NOTE | 2019-02-09 10:16 | NUR ---
TO CT VIA W/C.
--- NOTE | 2019-02-09 10:27 | NUR ---
PATIENT BACK FROM CT
[2019-02-09 11:10] VITALS: BP 128/74
== END 2019-02-09 11:09 | disposition home or self-care (01) ==
LOC: MED 09:39
DX: F07.81 Postconcussional syndrome (principal); J45.909 Unspecified asthma, uncomplicated; Z90.49 Acquired absence of other specified parts of digestive tract; Z88.1 Allergy status to other antibiotic agents; Z79.899 Other long term (current) drug therapy
CPT/HCPCS: 70450; 81002; 81025; 99284

== ENCOUNTER 2019-03-19 08:40 | Emergency (ER) | payer OTHER ==
[~2019-03-19] VITALS: Ht 160 cm; Wt 70.3 kg
[2019-03-19 08:41] VITALS: BP 128/70
[2019-03-19] MEDS ORDERED: KETOROLAC 60 MG/2 ML VIAL IM ONE (09:05)
--- NOTE | 2019-03-19 09:05 | NUR ---
Lolly linda in [facility] - 03/19/[address] STEINBERG AT [facility] FOR PT EVAL
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
--- NOTE | 2019-03-19 09:34 | NUR ---
PT'S URINE SAMPLE IS NOT ENOUGH FOR URINE ANALYSIS. WATER PROVIDED TO PT AND SHE IS NOT ABLE TO URINATE AT THIS TIME.
--- NOTE | 2019-03-19 09:36 | NUR ---
Patient returned from CT scan.
[2019-03-19 09:46] LABS: APPEARANCE,URINE HAZY (CLEAR); BILIRUBIN,URINE 2+ (NEGATIVE); BLOOD, URINE 3+ (NEGATIVE); COLOR,URINE YELLOW (YELLOW); LEUKOCYTE ESTERASE ,URINE 1+ (NEGATIVE); NITRITE, URINE NEGATIVE (NEGATIVE); UGLUCOSE NEGATIVE (NEGATIVE)
[2019-03-19 10:04] LABS: RBC,URINE 0-5 /HPF (0-5); URINE AMORPHOUS URATE 1+ /HPF (None Seen); WBC,URINE 0-5 /HPF (0-5)
[2019-03-19 10:20] VITALS: BP 122/64
--- NOTE | 2019-03-19 10:20 | NUR ---
Patient discharged with v/s stable. Written and verbal after care instructions given and explained. Patient alert, oriented and verbalized understanding of instructions. Ambulatory with steady gait. All questions addressed prior to discharge. ID band removed. Patient advised to follow up with PMD. Rx of BACLOFEN given. Patient educated on indication of medication including possible reaction and side effects. Opportunity to ask questions provided and answered.
== END 2019-03-19 10:20 | disposition home or self-care (01) ==
LOC: MED 08:40
DX: S16.1XXA Strain of muscle, fascia and tendon at neck level, initial encounter (principal); S43.81XA Sprain of other specified parts of right shoulder girdle, initial encounter; J45.909 Unspecified asthma, uncomplicated; Z79.899 Other long term (current) drug therapy; Z88.1 Allergy status to other antibiotic agents; V89.2XXA Person injured in unspecified motor-vehicle accident, traffic, initial encounter; Y93.89 Activity, other specified; Y92.89 Other specified places as the place of occurrence of the external cause; Y99.8 Other external cause status
CPT/HCPCS: 71046; 72040; 81001; 81025; 87086; 96372; 99284; J1885

== ENCOUNTER 2019-04-02 05:04 | Emergency (ER) | payer OTHER ==
[~2019-04-02] VITALS: Ht 160 cm; Wt 67.1 kg
[2019-04-02 05:06] VITALS: BP 134/84
[2019-04-02] MEDS ORDERED: KETOROLAC 60 MG/2 ML VIAL IM ONE (05:45)
[2019-04-02] MEDS ORDERED: MORPHINE SULFATE 4 MG/ML SYR IM ONE (06:05)
[2019-04-02 06:58] VITALS: BP 134/84
== END 2019-04-02 06:58 | disposition home or self-care (01) ==
LOC: MED 05:04
DX: M54.6 Pain in thoracic spine (principal); J45.909 Unspecified asthma, uncomplicated; F12.10 Cannabis abuse, uncomplicated; Z90.49 Acquired absence of other specified parts of digestive tract; Z98.890 Other specified postprocedural states; Z79.899 Other long term (current) drug therapy; Z88.1 Allergy status to other antibiotic agents
CPT/HCPCS: 71045; 81002; 81025; 96372; 99283; J1885; J2270; Q0092

== ENCOUNTER 2019-04-08 08:10 | Emergency (ER) | payer OTHER ==
[~2019-04-08] VITALS: Ht 162.6 cm; Wt 68.2 kg
[2019-04-08 08:12] VITALS: BP 116/80
[2019-04-08 08:15] VITALS: BP 116/80
--- NOTE | 2019-04-08 08:16 | NUR ---
PATIENT AMBULATED TO BED 8 AT THIS TIME.
[2019-04-08] MEDS ORDERED: predniSONE 20 MG TAB PO ONE (08:25)
[2019-04-08] MEDS ORDERED: ALBUTEROL SULFATE/IPRATROPIU 3 ML SOL IH ONE (08:25)
--- NOTE | 2019-04-08 08:30 | NUR ---
PT BIB FAMILY C/O SOB, RT SIDE LQABD PAIN x 1 day s/p anxiety attack. PT REFUSED PO MEDS, RT AT BEDSIDE 1 HHN TX GIVEN-NADR AT THIS TIME. UA DONE HCG-NEG, FAMILY AT BEDSIDE. LUNGS BILAT CL, NO COUGH, AA0X4. SKIN-PALE/WARM/DRY. PAIN 03/08 TO LOW RT ABD X 1 DAY. BS-WNL. GAIT-WNL. HX-asthma
--- NOTE | 2019-04-08 08:40 | NUR ---
RT AT BEDSIDE
--- NOTE | 2019-04-08 09:02 | NUR ---
Received report from CHARY Johnson.
--- NOTE | 2019-04-08 09:15 | NUR ---
Patient discharged BY DR DUARTE. Written and verbal after care instructions given and explained BY DR DUARTE Patient alert, oriented and Ambulatory with steady gait. ID band removed. Rx of PREDNISONE AND ALBULTEROL SULFATE given.
== END 2019-04-08 09:15 | disposition home or self-care (01) ==
LOC: MED 08:10
DX: J45.901 Unspecified asthma with (acute) exacerbation (principal); F12.10 Cannabis abuse, uncomplicated; Z71.6 Tobacco abuse counseling; Z90.49 Acquired absence of other specified parts of digestive tract; Z98.890 Other specified postprocedural states; Z98.84 Bariatric surgery status; Z79.899 Other long term (current) drug therapy; Z88.1 Allergy status to other antibiotic agents
CPT/HCPCS: 81002; 81025; 94640; 99283; J7620; J7512

== ENCOUNTER 2019-06-22 10:09 | Emergency (ER) | payer OTHER ==
[~2019-06-22] VITALS: Ht 160 cm; Wt 64.9 kg
[2019-06-22 10:16] VITALS: BP 134/89
[2019-06-22] MEDS ORDERED: ACETAMINOPHEN 325 MG TAB PO ONE (11:15)
[2019-06-22] MEDS ORDERED: IPRATROPIUM 0.02% 0.5 MG/2.5 ML NEBU INH ONE (11:15)
[2019-06-22] MEDS ORDERED: predniSONE 20 MG TAB PO ONE (11:15)
[2019-06-22] MEDS ORDERED: ALBUTEROL 0.083% 2.5 MG/3 ML NEBU INH ONE (11:15)
[2019-06-22 12:04] LABS: BASOPHILS % (AUTO) 0.3 % (0.0-2.0); EOSINOPHILS % (AUTO) 0.4 % (0.0-4.0); HEMATOCRIT 41.4 % (36-48); HEMOGLOBIN 13.6 g/dL (12.0-16.0); LYMPHOCYTES % (AUTO) 27.3 % (20.5-51.1); MEAN CORPUSCULAR HEMOGLOBIN 28 pg (27-31); MEAN CORPUSCULAR HGB CONC 33 g/dL (33-37); MEAN CORPUSCULAR VOLUME 86.2 fL (80-94); MONOCYTES # (AUTO) 0.6 K/uL (0.8-1.0); MONOCYTES % (AUTO) 8.9 % (1.7-9.3); NEUTROPHILS # (AUTO) 4.5 K/uL (1.8-7.7); NEUTROPHILS % (AUTO) 63.1 % (42.2-75.2); PLATELET COUNT (AUTO) 243 K/uL (140-450); RED CELL DISTRIBUTION WIDTH 15.9 % (11.6-13.7); WHITE BLOOD COUNT (AUTO) 7.2 K/uL (4.8-10.8)
[2019-06-22 12:10] LABS: ANION GAP 13.3 (8-16); CARBON DIOXIDE 26.4 mmol/L (21-32); CREATININE 0.6 mg/dL (0.6-1.3); POTASSIUM 3.7 mmol/L (3.5-5.1)
[2019-06-22 12:16] LABS: TOTAL BILIRUBIN 1.3 mg/dL (0.0-1.0)
[2019-06-22 12:44] VITALS: BP 125/81
== END 2019-06-22 10:30 | disposition home or self-care (01) ==
LOC: MED 10:09
DX: J45.901 Unspecified asthma with (acute) exacerbation (principal); R10.11 Right upper quadrant pain; G89.29 Other chronic pain; Z90.49 Acquired absence of other specified parts of digestive tract; Z98.890 Other specified postprocedural states; Z79.51 Long term (current) use of inhaled steroids; Z79.899 Other long term (current) drug therapy; Z88.1 Allergy status to other antibiotic agents
CPT/HCPCS: 36415; 80053; 83690; 85025; 94640; 99283; J7613; J7644; 99284; J7512

== ENCOUNTER 2019-07-05 05:15 | Emergency (ER) | payer OTHER ==
[~2019-07-05] VITALS: Ht 160 cm; Wt 64.4 kg
[2019-07-05 05:27] VITALS: BP 127/86
--- NOTE | 2019-07-05 05:27 | NUR ---
29 Y/O PRESENTS TO ED, C/O BACK PAIN 05/09 X1 DAY. PT STATES PAIN WORSENS WHEN SHE BREATHS. C/O SOB WITH COUGHING YELLOW SPUTUM. TOOK MOTRIN YESTERDAY BUT WAS INEFFECTIVE. PT HAS HX OF ASTHMA, USED INHALER 4HRS AGO. LUNG SOUNDS BILAT CLEAR. PT HAS NO FEVER NOTED. VSS. ERMD AWARE. WILL CONTINUE TO MONITOR.
[2019-07-05] MEDS ORDERED: KETOROLAC 60 MG/2 ML VIAL IM ONE (05:45)
[2019-07-05 07:05] VITALS: BP 127/86
--- NOTE | 2019-07-05 07:05 | NUR ---
PT DISCHARGED WITH PAPERWORK. RX MOTRIN AND PREDNISONE. EDUCATED PT REGARDING MEDICATIONS AND S/E. EDUCATED PT REGARDING D/C DIAGNOSIS AND INSTRUCTIONS. PT VERBALIZED UNDERSTANDING OF TEACHING. TOLD PT TO FOLLOW UP WITH PCP AND WHEN TO RETURN TO ED. PT VSS. PT DENIES ANY PAIN. ALL QUESTIONS ANSWERED.
== END 2019-07-05 07:05 | disposition home or self-care (01) ==
LOC: MED 05:15
DX: M54.6 Pain in thoracic spine (principal); R05 Cough; J45.909 Unspecified asthma, uncomplicated; F41.9 Anxiety disorder, unspecified; Z90.49 Acquired absence of other specified parts of digestive tract; Z98.890 Other specified postprocedural states; Z95.1 Presence of aortocoronary bypass graft; Z79.51 Long term (current) use of inhaled steroids; Z79.899 Other long term (current) drug therapy; Z88.1 Allergy status to other antibiotic agents
CPT/HCPCS: 71045; 81002; 81025; 96372; 99283; J1885; Q0092

== ENCOUNTER 2019-07-09 20:43 | Emergency (ER) | payer OTHER ==
[~2019-07-09] VITALS: Ht 160 cm; Wt 64.4 kg
[2019-07-09 21:14] VITALS: BP 154/93
--- NOTE | 2019-07-09 21:21 | NUR ---
PT AMBULATED TO ER BED 07
[2019-07-09] MEDS ORDERED: MORPHINE SULFATE 4 MG/ML SYR IVP ONE (21:30)
[2019-07-09] MEDS ORDERED: ONDANSETRON 4 MG/2 ML VIAL IVP ONE (21:30)
--- NOTE | 2019-07-09 21:40 | NUR ---
29 Y/O F PRESENTS TO ER C/O HEADACHE AND BACK PAIN X2 DAYS. DENIES TRAUMA OR INJURY. DENIES VISION CHANGES. PT TOOK IBUPROFEN AT NOON, WITHOUT ANY RELIEF. PAIN LEVEL 10/10, SHARP ACHING PAIN. HOB ELEVATED, BED IN LOWEST POSITION, BED RAIL UP X1. ALLERGIES: NKA. MED HX: ASTHMA. ERMD MADE AWARE OF PT STATUS.
[2019-07-09] MEDS ORDERED: KETOROLAC 30 MG/ML VIAL IVP ONE (22:30)
--- NOTE | 2019-07-09 22:40 | NUR ---
PER PT HEADACHE WENT AWAY. BACK PAIN, PAIN LEVEL 10/10.
[2019-07-09] MEDS ORDERED: SUMAtriptan 25 MG TAB PO ONE (22:55)
--- NOTE | 2019-07-09 23:00 | NUR ---
PT STATES WHEN SHE STRETCHES, HER BACK FEELS BETTER BUT SITTING UP BACK STILL HURTS. ERMD MADE AWARE.
[2019-07-09] MEDS ORDERED: CYCLOBENZAPRINE 10 MG TAB PO ONE (23:30)
[2019-07-09 23:40] VITALS: BP 126/81
--- NOTE | 2019-07-09 23:40 | NUR ---
Patient discharged with v/s stable. Written and verbal after care instructions given and explained. Pt encouraged to stay well hydrated and follow up with primary care provider in 2-3 days. Patient alert, oriented and verbalized understanding of instructions. Ambulatory with steady gait. All questions addressed prior to discharge. ID band removed. Patient advised to follow up with PMD. Rx of IBURPOFEN 800MG and FLEXERIL 10MG was given. Patient educated on indication of medication including possible reaction and side effects. Opportunity to ask questions provided and answered.
== END 2019-07-09 23:40 | disposition home or self-care (01) ==
LOC: MED 20:43
DX: R51 Headache (principal); G89.29 Other chronic pain; M54.9 Dorsalgia, unspecified; J45.909 Unspecified asthma, uncomplicated; Z79.899 Other long term (current) drug therapy
CPT/HCPCS: 96374; 96375; 99283; J1885; J2270; J2405

== ENCOUNTER 2019-07-15 11:50 | Emergency (ER) | payer OTHER ==
[~2019-07-15] VITALS: Ht 160 cm; Wt 62.1 kg
[2019-07-15 11:52] VITALS: BP 126/69
--- NOTE | 2019-07-15 13:33 | NUR ---
PATIENT LEFT WITHOUT BEING SEEN BY DR. STEINBERG. NO FURTHER CARE PROVIDED FOR PATIENT.
== END 2019-07-15 13:33 | disposition left against medical advice (07) ==
LOC: MED 11:50
DX: R11.10 Vomiting, unspecified (principal); M54.6 Pain in thoracic spine; Z53.21 Procedure and treatment not carried out due to patient leaving prior to being seen by health care provider
CPT/HCPCS: 81025

== ENCOUNTER 2019-07-16 05:37 | Emergency (ER) | payer OTHER ==
[~2019-07-16] VITALS: Ht 160 cm; Wt 62.1 kg
[2019-07-16 05:37] VITALS: BP 118/66
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
--- NOTE | 2019-07-16 05:37 | NUR ---
PT AMBULATED TO BED 4 FROM [facility].
--- NOTE | 2019-07-16 05:43 | NUR ---
PT DORA FUENTESS. TAKEN TO BED 4
--- NOTE | 2019-07-16 06:03 | NUR ---
Dr. Monterroso examining patient.
--- NOTE | 2019-07-16 06:47 | NUR ---
Ultrasound at bedside.
--- NOTE | 2019-07-16 07:09 | NUR ---
Pt report given to CHARY KNIGHT. Transfer of care at this time.
--- NOTE | 2019-07-16 07:49 | NUR ---
LABS DRAWN AND WALKED OVER TO LAB
[2019-07-16 08:09] LABS: BASOPHILS % (AUTO) 0.3 % (0.0-2.0); EOSINOPHILS # (AUTO) 0.3 K/uL (0-0.4); EOSINOPHILS % (AUTO) 2.4 % (0.0-4.0); HEMATOCRIT 44.5 % (36-48); HEMOGLOBIN 14.7 g/dL (12.0-16.0); LYMPHOCYTES # (AUTO) 2.4 K/uL (2.5-16.5); LYMPHOCYTES % (AUTO) 20.8 % (20.5-51.1); MEAN CORPUSCULAR HEMOGLOBIN 28 pg (27-31); MEAN CORPUSCULAR HGB CONC 33 g/dL (33-37); MEAN CORPUSCULAR VOLUME 86.1 fL (80-94); MONOCYTES % (AUTO) 8.6 % (1.7-9.3); NEUTROPHILS # (AUTO) 7.8 K/uL (1.8-7.7); NEUTROPHILS % (AUTO) 67.9 % (42.2-75.2); PLATELET COUNT (AUTO) 278 K/uL (140-450); RED BLOOD CELL COUNT(AUTO) 5.16 MIL/uL (4.20-5.40); RED CELL DISTRIBUTION WIDTH 15.4 % (11.6-13.7); WHITE BLOOD COUNT (AUTO) 11.5 K/uL (4.8-10.8)
[2019-07-16 08:18] LABS: BILIRUBIN,URINE NEGATIVE (NEGATIVE); BLOOD, URINE 3+ (NEGATIVE); COLOR,URINE YELLOW (YELLOW); LEUKOCYTE ESTERASE ,URINE NEGATIVE (NEGATIVE); NITRITE, URINE NEGATIVE (NEGATIVE); UGLUCOSE NEGATIVE (NEGATIVE)
[2019-07-16] MEDS ORDERED: METOCLOPRAMIDE 10 MG/2 ML INJ VIAL IVP ONE (08:20)
[2019-07-16] MEDS ORDERED: MULTIVITAMIN-12 10 ML, THIAMINE 100 MG, MAGNESIUM SULFATE 50% 2,000 MG, FOLIC ACID 5 MG... IV ONE ×5 (08:20)
[2019-07-16] MEDS ORDERED: ONDANSETRON 4 MG/2 ML VIAL IVP ONE (08:20)
[2019-07-16] MEDS ORDERED: GLYCOPYRROLATE 0.2 MG/ML VIAL IV ONE (08:20)
[2019-07-16 08:27] LABS: APPEARANCE,URINE SLIGHTLY HAZY (CLEAR); RBC,URINE 20-50 /HPF (0-5)
[2019-07-16 08:28] LABS: WBC,URINE 0-5 /HPF (0-5)
--- NOTE | 2019-07-16 08:35 | NUR ---
CALLED PHARMACY FOR BANANA BAG, THEY WILL BRING OVER
[2019-07-16 08:43] LABS: ANION GAP 16.9 (8-16); CARBON DIOXIDE 22.7 mmol/L (21-32); CREATININE 0.5 mg/dL (0.6-1.3); POTASSIUM 3.6 mmol/L (3.5-5.1)
[2019-07-16] MEDS ORDERED: ALBUTEROL SULFATE/IPRATROPIU 3 ML SOL IH ONE (08:45)
[2019-07-16 10:47] VITALS: BP 118/66
--- NOTE | 2019-07-16 10:49 | NUR ---
Patient discharged with v/s stable. Written and verbal after care instructions given and explained. Patient alert, oriented and verbalized understanding of instructions. Ambulatory with steady gait. All questions addressed prior to discharge. ID band removed. Patient advised to follow up with PMD. Rx of CITRACAL given. Patient educated on indication of medication including possible reaction and side effects. Opportunity to ask questions provided and answered.
--- NOTE | 2019-07-17 12:54 | NUR ---
Late entry. Confirmed with RN that D5.9 1000 ml IV with MVI completed at 1030
== END 2019-07-16 10:49 | disposition home or self-care (01) ==
LOC: MED 05:37
DX: O21.8 Other vomiting complicating pregnancy (principal); O26.891 Other specified pregnancy related conditions, first trimester; R10.13 Epigastric pain; O99.511 Diseases of the respiratory system complicating pregnancy, first trimester; J45.909 Unspecified asthma, uncomplicated; O99.341 Other mental disorders complicating pregnancy, first trimester; F32.9 Major depressive disorder, single episode, unspecified; O99.211 Obesity complicating pregnancy, first trimester; O99.331 Smoking (tobacco) complicating pregnancy, first trimester; Z3A.01 Less than 8 weeks gestation of pregnancy; Z90.49 Acquired absence of other specified parts of digestive tract; Z98.890 Other specified postprocedural states; Z79.51 Long term (current) use of inhaled steroids; Z79.899 Other long term (current) drug therapy
CPT/HCPCS: 36415; 76801; 80048; 81001; 81025; 84702; 85025; 86900; 86901; 94640; 94760; 96365; 96375; 99284; A9153; J2405; J2765; J3411; J3475; J3490; J7620; Q0092

== ENCOUNTER 2019-07-19 06:23 | Emergency (ER) | payer OTHER ==
[~2019-07-19] VITALS: Ht 160 cm; Wt 61.7 kg
[2019-07-19 06:25] VITALS: BP 113/71
--- NOTE | 2019-07-19 06:34 | NUR ---
PT AMBULATED TO THE RESTROOM INDEPENDENTLY
--- NOTE | 2019-07-19 06:34 | NUR ---
AMBULATED TO ER BED 7
--- NOTE | 2019-07-19 06:47 | NUR ---
29 Y/O FEMALE PRESENTS TO ED, C/O CONSTIPATION X4 DAYS. PT STATES BEING UNABLE TO HAVE ANY BM. C/O OF LOWER ABDOMINAL PAIN 2/10; PT DENIES TAKING ANY MEDICATIONS FOR PAIN. BS HYPOACTIVE. ABDOMEN SOFT/FLAT, PAIN ON PALPATION ON LOWER QUADRANTS. 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 PT AT STABLE CONDITION. ERMD AWARE. WILL CONTINUE TO MONITOR.
--- NOTE | 2019-07-19 06:54 | NUR ---
PT HAD EPISODE OF VOMIT. ERMD AWARE. WILL CONTINUE TO MONITOR.
--- NOTE | 2019-07-19 07:25 | NUR ---
Dr. Mullins is evaluating the patient at bedside.
--- NOTE | 2019-07-19 07:29 | NUR ---
Dr. Mullins is evaluating the patient with a female analytical data scientist, nurse Manzano.
--- NOTE | 2019-07-19 07:29 | NUR ---
DR. CANDELARIA DID RECTAL EXAM AT BEDSIDE, CHAPERONED BY ME. PT TOLERATED WELL.
[2019-07-19] MEDS ORDERED: SODIUM PHOSPHATE 118 ML ENEM RC ONE (07:35)
--- NOTE | 2019-07-19 08:15 | NUR ---
PT WENT TO BATHROOM AFTER FLEET ENEMA GIVEN, PT STATED FEELING BETTER NOW. ED MD MADE AWARE.
[2019-07-19 08:16] LABS: BILIRUBIN,URINE NEGATIVE (NEGATIVE); BLOOD, URINE NEGATIVE (NEGATIVE); COLOR,URINE YELLOW (YELLOW); LEUKOCYTE ESTERASE ,URINE NEGATIVE (NEGATIVE); NITRITE, URINE NEGATIVE (NEGATIVE); UGLUCOSE NEGATIVE (NEGATIVE)
[2019-07-19 08:40] LABS: APPEARANCE,URINE CLEAR (CLEAR)
--- NOTE | 2019-07-19 08:55 | NUR ---
Dr. Mullins at bedside for US.
[2019-07-19 09:10] VITALS: BP 113/71
--- NOTE | 2019-07-19 09:10 | NUR ---
Patient'S VSS, DENIES PAIN, STATED FEELING MUCH BETTER, READY TO GO HOME. Written and verbal after care instructions given and explained. Rx of COLACE given. Patient educated on indication of medication including possible reaction and side effects. All questions addressed prior to discharge. ID band removed. Patient advised to follow up with PMD.
== END 2019-07-19 09:10 | disposition home or self-care (01) ==
LOC: MED 06:23
DX: O99.611 Diseases of the digestive system complicating pregnancy, first trimester (principal); K59.00 Constipation, unspecified; J45.909 Unspecified asthma, uncomplicated; Z79.899 Other long term (current) drug therapy; Z3A.08 8 weeks gestation of pregnancy
CPT/HCPCS: 81003; 99284

== ENCOUNTER 2019-08-03 12:47 | Emergency (ER) | payer OTHER ==
[2019-08-09 21:38] LABS: POTASSIUM 3.5 mmol/L (3.5-5.1); SODIUM SERUM 137 mmol/L (136-145)
[2019-08-09 21:39] LABS: ANION GAP 12.5 (8-16); ASPARTATE AMINOTRANSFERASE 13 U/L (15-37); CHLORIDE 103 mmol/L (98-107); CREATININE 0.5 mg/dL (0.6-1.3); GFR ARICAN-AMERICAN 190 mL/min (>90); GLUCOSE 129 mg/dL (74-106); TOTAL BILIRUBIN 0.5 mg/dL (0.0-1.0); UREA NITROGEN, BLOOD 7 mg/dL (7-18)
[2019-08-09 21:46] LABS: ALBUMIN 3.5 g/dL (3.4-5.0)
[2019-08-10 16:06] LABS: HEMATOCRIT 41.6 % (36-48); HEMOGLOBIN 13.4 g/dL (12.0-16.0); MEAN CORPUSCULAR HEMOGLOBIN 28 pg (27-31); MEAN CORPUSCULAR HGB CONC 32 g/dL (33-37); MEAN CORPUSCULAR VOLUME 86.6 fL (80-94); WHITE BLOOD COUNT (AUTO) 5.5 K/uL (4.8-10.8)
[2019-08-10 16:07] LABS: BASOPHILS % (AUTO) 0.3 % (0.0-2.0); EOSINOPHILS # (AUTO) 0.1 K/uL (0-0.4); EOSINOPHILS % (AUTO) 2.5 % (0.0-4.0); LYMPHOCYTES # (AUTO) 1.6 K/uL (2.5-16.5); LYMPHOCYTES % (AUTO) 28.8 % (20.5-51.1); MONOCYTES # (AUTO) 0.3 K/uL (0.8-1.0); MONOCYTES % (AUTO) 5.8 % (1.7-9.3); NEUTROPHILS # (AUTO) 3.5 K/uL (1.8-7.7); NEUTROPHILS % (AUTO) 62.6 % (42.2-75.2); PLATELET COUNT (AUTO) 243 K/uL (140-450)
== END 2019-08-03 17:22 | disposition home or self-care (01) ==
LOC: MED 12:47
DX: O02.1 Missed abortion (principal); Z86.69 Personal history of other diseases of the nervous system and sense organs; Z90.49 Acquired absence of other specified parts of digestive tract; Z87.19 Personal history of other diseases of the digestive system
CPT/HCPCS: 36415; 76801; 80053; 84702; 85025; 99284; Q0092

== ENCOUNTER 2021-08-10 06:20 | Emergency (ER) | payer OTHER ==
[~2021-08-10] VITALS: Ht 160 cm; Wt 81.6 kg
[2021-08-10 06:25] VITALS: BP 130/80
--- NOTE | 2021-08-10 06:25 | NUR ---
to bed ambulatory
--- NOTE | 2021-08-10 06:36 | NUR ---
RECEIVED IN BED 2 WITH C/O SOB X 3 DAYS. PT STATES "IT'S ASTHMA" INHALERS HAD THEREFORE DID NOT USE. LUNGS ARE CLEAR A &P. RESPIRATIONS ARE REGULAR AND UNLABORED
[2021-08-10] MEDS ORDERED: PRON INH (07:23)
[2021-08-10] MEDS ORDERED: PRED20TA5 PO (07:23)
[2021-08-10] MEDS: predniSONE 20 MG TAB PO ONE (07:29)
--- NOTE | 2021-08-10 07:52 | NUR ---
RT AT BEDSIDE.
[2021-08-10] MEDS: ALBUTEROL SULFATE/IPRATROPIU 3 ML SOL IH ONE (07:53)
--- NOTE | 2021-08-10 07:53 | NUR ---
NOVAL CORONAVIRUS PEDRO SWABED AND TAKEN TO THE LAB.
--- NOTE | 2021-08-10 08:08 | NUR ---
Patient discharged with v/s stable. Written and verbal after care instructions given and explained. Patient alert, oriented and verbalized understanding of instructions. Ambulatory with steady gait. All questions addressed prior to discharge. ID band removed. Patient advised to follow up with PMD. Rx of PREDNISONE, ALBUTEROL SULFATE given.Opportunity to ask questions provided and answered.
--- NOTE | 2021-08-10 08:19 | NUR ---
The patient's care was reviewed and supervised by Hattie Hernández RN.
== END 2021-08-10 08:07 | disposition home or self-care (01) ==
LOC: MED 06:20
DX: J45.901 Unspecified asthma with (acute) exacerbation (principal); Z20.822 Contact with and (suspected) exposure to COVID-19; Z79.899 Other long term (current) drug therapy; Z79.51 Long term (current) use of inhaled steroids
CPT/HCPCS: 71045; 93005; 94640; 99285; J7512; U0003

== ENCOUNTER 2022-03-07 07:48 | Emergency (ER) | payer OTHER ==
[~2022-03-07] VITALS: Ht 160 cm; Wt 78.5 kg
[~2022-03-07 07:48] MED LIST changes: +PRED20TA5 PO; +PRON INH
[2022-03-07 07:50] VITALS: BP 100/67
--- NOTE | 2022-03-07 08:00 | NUR ---
31 Y/O FEMALE. C/O OF 8/10 SHARP PAIN X3 DAYS. PAIN TO LLQ THAT RADIATES TO LOWER ABDOMEN. C/O DIZZINESS AND LIGHTHEADEDNESS. DENIES SOB, SYNCOPAL EPISODES, DYSURIA, NO FEVER/CHILLS/NV. TOOK TYLENOL 500MG LAST NIGHT WHICH WAS NOT EFFECTIVE. PMH: ASTHMA, TUBAL LIGATION MEDS: DEPAKOTE, LATUDA, HYDROXYZINE
--- NOTE | 2022-03-07 08:15 | NUR ---
ERMD AT BEDSIDE FOR EVALUATION
[2022-03-07] MEDS ORDERED: KETOROLAC 60 MG/2 ML VIAL IM ONE (08:25)
--- NOTE | 2022-03-07 08:39 | NUR ---
LAB AT BEDSIDE
--- NOTE | 2022-03-07 08:49 | NUR ---
US, Jayleen at bedside
[2022-03-07 09:05] LABS: ANION GAP 9.7 (8-16); CARBON DIOXIDE 32.5 mmol/L (21-32); CREATININE 0.6 mg/dL (0.6-1.3); POTASSIUM 4.2 mmol/L (3.5-5.1)
[2022-03-07 09:17] LABS: BASOPHILS # (AUTO) 0.1 K/uL (0.00-0.22); BASOPHILS % (AUTO) 0.7 % (0.0-2.0); EOSINOPHILS # (AUTO) 0.3 K/uL (0-0.4); EOSINOPHILS % (AUTO) 4.3 % (0.0-4.0); HEMATOCRIT 40.8 % (36-48); HEMOGLOBIN 13.4 g/dL (12.0-16.0); LYMPHOCYTES # (AUTO) 2.4 K/uL (2.5-16.5); LYMPHOCYTES % (AUTO) 32.4 % (20.5-51.1); MEAN CORPUSCULAR HEMOGLOBIN 30 pg (27-31); MEAN CORPUSCULAR HGB CONC 33 g/dL (33-37); MEAN CORPUSCULAR VOLUME 90.1 fL (80-94); MONOCYTES # (AUTO) 0.5 K/uL (0.8-1.0); MONOCYTES % (AUTO) 7.3 % (1.7-9.3); NEUTROPHILS # (AUTO) 4.1 K/uL (1.8-7.7); NEUTROPHILS % (AUTO) 55.3 % (42.2-75.2); PLATELET COUNT (AUTO) 246 K/uL (140-450); RED BLOOD CELL COUNT(AUTO) 4.53 MIL/uL (4.20-5.40); RED CELL DISTRIBUTION WIDTH 13.4 % (11.6-13.7); WHITE BLOOD COUNT (AUTO) 7.5 K/uL (4.8-10.8)
[2022-03-07] MEDS ORDERED: ACET-8386 PO (10:34)
[2022-03-07] MEDS ORDERED: IBUP-2213 PO (10:34)
[2022-03-07 10:40] VITALS: BP 108/73
== END 2022-03-07 10:40 | disposition home or self-care (01) ==
LOC: MED 07:48
DX: D25.9 Leiomyoma of uterus, unspecified (principal); R42 Dizziness and giddiness; J45.909 Unspecified asthma, uncomplicated; Z98.890 Other specified postprocedural states; Z79.899 Other long term (current) drug therapy
CPT/HCPCS: 36415; 76830; 80048; 81002; 81025; 85025; 96372; 99284; J1885; Q0092